=== PATIENT | female | born 1965 ===

== ENCOUNTER 2021-06-06 15:05 | Emergency (ER) | payer SELFPAY ==
[2021-06-06 15:16] VITALS: BP 158/88
== END 2021-06-06 17:29 | disposition left against medical advice (07) ==
LOC: ER 15:06
DX: M25.562 Pain in left knee (principal); G43.909 Migraine, unspecified, not intractable, without status migrainosus; G89.29 Other chronic pain
CPT/HCPCS: 73564; 99283